=== PATIENT | male | born 1955 | race Two or more races ===

== ENCOUNTER 2020-10-16 17:12 | Emergency (ER) | payer OTHER, MEDICAID ==
[~2020-10-16] VITALS: Ht 177.8 cm; Wt 72.0 kg
[~2020-10-16 17:12] MED LIST: ALBU6.7H9 ORI; HYDR-4135 PO; LIP40 PO; LOSA1TAB40 MT
[2020-10-16 18:13] LABS: BASOPHILS % 0.3 % (0.0-2.0); EOSINOPHILS % 5.6 % (0.0-5.0); HEMATOCRIT. 40.6 % (42.0-52.0); HEMOGLOBIN. 13.8 g/dL (14.0-18.0); LYMPHOCYTES % 13.7 % (20.0-50.0); MEAN CORPUSCULAR HEMOGLOBIN 30.8 pg (28.0-32.0); MEAN CORPUSCULAR VOLUME 90.7 fL (80.0-94.0); MEAN PLATELET VOLUME 8.4 fl (7.4-10.4); MONOCYTES % 9.1 % (2.0-8.0); NEUTROPHILS % 71.3 % (40.0-76.0); PLATELET 219 x1000/uL (130-400); RED BLOOD CELL COUNT 4.47 mill/uL (4.7-6.1); RED CELL DISTRIBUTION WIDTH 16.8 % (11.6-14.6)
[2020-10-16 18:20] LABS: CHLORIDE 107 mEq/L (98-107)
[2020-10-16] MEDS ORDERED: IOHEXOL-350 100 ML BOTTLE ONE (20:42)
[2020-10-16 21:50] VITALS: BP 156/71
== END 2020-10-16 22:13 | disposition home health service (06) ==
LOC: ER 17:12
DX: R60.9 Edema, unspecified (principal); J44.9 Chronic obstructive pulmonary disease, unspecified; J90 Pleural effusion, not elsewhere classified; I10 Essential (primary) hypertension; I25.2 Old myocardial infarction
CPT/HCPCS: 36415; 71045; 71275; 80053; 83880; 84484; 85025; 85379; 93005; 93971; 99285; Q9967

== ENCOUNTER 2020-10-26 05:35 | Inpatient (IN) | payer MEDICAID, OTHER ==
[~2020-10-26] VITALS: Ht 177.8 cm; Wt 72.6 kg
[2020-10-26 06:20] LABS: BASOPHILS % 0.2 % (0.0-2.0); EOSINOPHILS % 4.3 % (0.0-5.0); HEMATOCRIT. 38.8 % (42.0-52.0); LYMPHOCYTES % 9.2 % (20.0-50.0); MEAN CORPUSCULAR HEMOGLOBIN 30.6 pg (28.0-32.0); MEAN CORPUSCULAR VOLUME 91.2 fL (80.0-94.0); MEAN PLATELET VOLUME 7.5 fl (7.4-10.4); MONOCYTES % 6.7 % (2.0-8.0); NEUTROPHILS % 79.6 % (40.0-76.0); PLATELET 239 x1000/uL (130-400); RED BLOOD CELL COUNT 4.25 mill/uL (4.7-6.1); RED CELL DISTRIBUTION WIDTH 15.6 % (11.6-14.6)
[2020-10-26 06:25] LABS: CHLORIDE 108 mEq/L (98-107)
[2020-10-26] MEDS ORDERED: AZITHROMYCIN 500MG/250ML 250 ML IV ONE (06:45)
[2020-10-26] MEDS ORDERED: CEFTRIAXONE 1 G PREMIX 50 ML IV ONE (06:45)
[2020-10-26 12:00] VITALS: BP 131/68
[2020-10-26] MEDS ORDERED: IPRATROPIUM/ALBUTEROL 0.5-3(2.5)MG/3ML NEB HHN PRN (12:15)
[2020-10-26] MEDS ORDERED: ACETAMINOPHEN 325MG TABLET PO PRN (12:15)
[2020-10-26] MEDS ORDERED: DOCUSATE SODIUM 100MG CAPSULE PO PRN (12:15)
[2020-10-26] MEDS ORDERED: ONDANSETRON HCL 4MG/2ML INJ IV PRN (12:15)
[2020-10-26] MEDS ORDERED: GUAIFENESIN 200MG/10ML SUGAR FREE UDC PO PRN (12:15)
[2020-10-26] MEDS ORDERED: HYDROCODONE/ACETAMINOPHEN 5/325MG TABLET PO PRN (12:15)
[2020-10-26] MEDS ORDERED: HYDRALAZINE 20MG/ML VIAL IV PRN (12:15)
[2020-10-26] MEDS ORDERED: MAGNESIUM/ALUMINUM HYDROXIDE/SIMETHICONE 30ML UDC PO PRN (12:15)
[2020-10-26] MEDS ORDERED: CLONIDINE 0.1MG TABLET PO PRN (12:15)
[2020-10-26] MEDS ORDERED: MORPHINE SULFATE 2 MG/ML CPJ (NOT FOR IM USE) IV PRN (12:15)
[2020-10-26] MEDS ORDERED: LORAZEPAM 2MG/ML CPJ IV PRN (12:15)
[2020-10-26] MEDS ORDERED: DIPHENHYDRAMINE 50MG/ML VIAL IV PRN (12:15)
[2020-10-26 14:00] VITALS: BP 135/70
[2020-10-26] MEDS ORDERED: CLOP-31 MT (14:39)
[2020-10-26] MEDS ORDERED: LISI2.5T47 MT (14:41)
[2020-10-26] MEDS ORDERED: ASPI-1497 MT (14:41)
[2020-10-26] MEDS ORDERED: ISOS40TA17 MT (14:41)
[2020-10-26 16:00] VITALS: BP 140/67
[2020-10-26] MEDS: SODIUM CHLORIDE 0.9% INJ 3ML FLUSH IVF SCH ×2 (16:09→21:11)
[2020-10-26] MEDS: ENOXAPARIN 40MG/0.4ML SYR SUBCUT SCH (16:09)
[2020-10-26 17:31] LABS: CREATINE KINASE 167 IU/L (39-308)
[2020-10-26 17:32] LABS: CREATINE KINASE MB FRACTION 1.1 ng/mL (0.5-3.6)
[2020-10-26] MEDS ORDERED: CLOP75TA33 MT (18:56)
[2020-10-26 20:00] VITALS: BP 143/62
[2020-10-26 23:36] LABS: CREATINE KINASE 99 IU/L (39-308)
[2020-10-26 23:37] LABS: CREATINE KINASE MB FRACTION 1.4 ng/mL (0.5-3.6)
[2020-10-27] VITALS: BP 137/59
[2020-10-27 04:00] VITALS: BP 123/66
[2020-10-27] MEDS: SODIUM CHLORIDE 0.9% INJ 3ML FLUSH IVF SCH ×3 (06:06→21:08)
[2020-10-27 07:10] LABS: BASOPHILS % 0.5 % (0.0-2.0); EOSINOPHILS % 7.8 % (0.0-5.0); LYMPHOCYTES % 11.5 % (20.0-50.0); MEAN CORPUSCULAR HEMOGLOBIN 30.3 pg (28.0-32.0); MEAN CORPUSCULAR VOLUME 91.3 fL (80.0-94.0); MEAN PLATELET VOLUME 8.4 fl (7.4-10.4); MONOCYTES % 7.4 % (2.0-8.0); NEUTROPHILS % 72.8 % (40.0-76.0); PLATELET 241 x1000/uL (130-400); RED CELL DISTRIBUTION WIDTH 15.1 % (11.6-14.6)
[2020-10-27 07:40] LABS: CHLORIDE 108 mEq/L (98-107)
[2020-10-27 08:00] VITALS: BP 132/66
[2020-10-27] MEDS ORDERED: NALOXONE HCL 0.4MG/ML VIAL IV PRN (10:45)
[2020-10-27 12:00] VITALS: BP 129/71
[2020-10-27] MEDS: ISOSORBIDE MONONITRATE 30MG TABLET SR 24HR PO SCH (13:32)
[2020-10-27] MEDS: ASPIRIN 81MG TABLET PO SCH (13:32)
[2020-10-27] MEDS: AMLODIPINE 5MG TABLET PO SCH (13:32)
[2020-10-27] MEDS: CLOPIDOGREL 75MG TABLET PO SCH (13:32)
[2020-10-27] MEDS: ENOXAPARIN 40MG/0.4ML SYR SUBCUT SCH (13:33)
[2020-10-27 16:00] VITALS: BP 103/55
[2020-10-27 20:00] VITALS: BP 110/70
[2020-10-28] VITALS: BP 120/56
[2020-10-28 04:00] VITALS: BP 122/59
[2020-10-28] MEDS: SODIUM CHLORIDE 0.9% INJ 3ML FLUSH IVF SCH ×2 (05:40→13:27)
[2020-10-28 08:00] VITALS: BP 130/56
[2020-10-28] MEDS: ISOSORBIDE MONONITRATE 30MG TABLET SR 24HR PO SCH (09:34)
[2020-10-28] MEDS: AMLODIPINE 5MG TABLET PO SCH (09:34)
[2020-10-28] MEDS: CLOPIDOGREL 75MG TABLET PO SCH (09:34)
[2020-10-28] MEDS: ASPIRIN 81MG TABLET PO SCH (09:34)
[2020-10-28 12:00] VITALS: BP 123/62
[2020-10-28] MEDS: ENOXAPARIN 40MG/0.4ML SYR SUBCUT SCH (13:26)
[2020-10-28 13:56] VITALS: BP 123/62
== END 2020-10-28 14:47 | disposition home or self-care (01) | DRG 140 ==
LOC: ER 05:35 → 8WST 11:59 → EDBEDREQTM 12:01 → EDBEDREQ 12:01 → ENRESERV 13:06
PROVIDERS: ADMIT Internal Medicine; ATTEND Internal Medicine
DX: J44.0 Chronic obstructive pulmonary disease with (acute) lower respiratory infection (principal); J96.00 Acute respiratory failure, unspecified whether with hypoxia or hypercapnia; E46 Unspecified protein-calorie malnutrition; J18.9 Pneumonia, unspecified organism; J45.901 Unspecified asthma with (acute) exacerbation; J44.1 Chronic obstructive pulmonary disease with (acute) exacerbation; R07.9 Chest pain, unspecified; I25.10 Atherosclerotic heart disease of native coronary artery without angina pectoris; E78.5 Hyperlipidemia, unspecified; I10 Essential (primary) hypertension; I25.2 Old myocardial infarction; I70.201 Unspecified atherosclerosis of native arteries of extremities, right leg; Z87.891 Personal history of nicotine dependence; Z95.5 Presence of coronary angioplasty implant and graft
CPT/HCPCS: 36415; 71045; 80053; 82550; 82553; 83880; 84443; 84484; 85025; 93005; 93306; 93970; 99285; J0456; J0696; J1650; J2060